=== PATIENT | female | born 1950 | race Caucasian/White ===

== ENCOUNTER → 2016-12-15 | Outpatient (CLI) | payer OTHER ==
[2016-12-15 10:58] LABS: Basophils # (A) 0.1 k/uL (0-0.2); Basophils % (A) 1 %; CH 28.3; CHCM 32.6; Eosinophils # (A) 0.4 k/uL (0-0.7); Eosinophils % (A) 4 %; HCT 43.4 % (34.0-46.0); HGB 14.4 gm/dL (11.4-16.0); Luc # (Auto) 0.16; Luc % (Auto) 2; Lymphocytes % (A) 24 %; MCH 28.9 pg (25.0-35.0); MCHC 33.1 g/dL (31.0-37.0); MCV 87.2 fL (80.0-100.0); Mean Platelet Volume 6.5; Monocytes # (A) 0.4 k/uL (0-1.0); Monocytes % (A) 5 %; Neutrophils # (A) 5.4 k/uL (1.3-7.7); Neutrophils % (A) 65 %; RBC 4.98 m/uL (3.80-5.40); WBC 8.4 k/uL (3.8-10.6); WBC (Perox) 8.99
[2016-12-15 11:44] LABS: Hemoglobin A1C 5.5 % (4.2-6.1)
[2016-12-15 13:57] LABS: ALT 31 U/L (9-52); AST 26 U/L (14-36); Alkaline Phosphatase 142 U/L (38-126); Anion Gap 10 mmol/L; Blood Urea Nitrogen 23 mg/dL (7-17); Calcium 9.9 mg/dL (8.4-10.2); Carbon Dioxide 26 mmol/L (22-30); Chloride 106 mmol/L (98-107); Cholesterol 226 mg/dL (<200); Creatine Kinase 51 U/L (30-135); Glucose 95 mg/dL (74-99); HDL Cholesterol 66 mg/dL (40-60); Non-African American GFR(MDRD) >60 (>60 ml/min/1.73 sqM); Potassium 4.7 mmol/L (3.5-5.1); Sodium 142 mmol/L (137-145); Total Bilirubin 0.8 mg/dL (0.2-1.3); Total Protein 7.3 g/dL (6.3-8.2); Uric Acid 3.3 mg/dL (3.7-7.4)
[2016-12-15 14:58] LABS: Hepatitis C Virus IgG Ab Reactive (Negative); Hepatitis C Virus IgG Index 4.95
[2016-12-15 16:10] LABS: Vitamin B12 863 pg/mL (239-931)
[2016-12-15 16:50] LABS: ANA w/Reflex to Titer NEGATIVE (NEGATIVE); Cyclic Citrull Pep IgG Unit <0.5 U/mL; Cyclic Citrullinated Pep IgG NEGATIVE (NEGATIVE)
[2016-12-16 10:47] LABS: Lyme IgG/IgM 0.2 Index; Lyme IgG/IgM Interp NEGATIVE (NEGATIVE)
[2016-12-16 16:15] LABS: Hepatits C Virus RNA, Quant <12 IU/mL (<12); LOG HCV IU/mL <1.08 (<1.08)
== END | disposition home or self-care (01) ==
LOC: LABWHC1 10:33
PROVIDERS: ATTEND Family Medicine
DX: R53.82 Chronic fatigue, unspecified (principal); M85.9 Disorder of bone density and structure, unspecified; M60.19 Interstitial myositis, multiple sites; E55.9 Vitamin D deficiency, unspecified; M13.0 Polyarthritis, unspecified; E53.8 Deficiency of other specified B group vitamins; Z13.220 Encounter for screening for lipoid disorders; Z20.5 Contact with and (suspected) exposure to viral hepatitis
CPT/HCPCS: 36415; 80053; 80061; 82306; 82550; 82607; 83036; 83735; 84439; 84443; 84550; 85025; 86038; 86140; 86200; 86618; 86803; 87522

== ENCOUNTER → 2017-01-11 | Outpatient (CLI) | payer OTHER | END | disposition home or self-care (01) | LOC: LABWHC1 11:37 | PROVIDERS: ATTEND Physician Assistant | DX: B19.20 Unspecified viral hepatitis C without hepatic coma (principal); Z86.19 Personal history of other infectious and parasitic diseases | CPT/HCPCS: 36415; 80074 ==

== ENCOUNTER → 2019-01-17 | Outpatient (CLI) | payer MEDICARE, OTHER ==
--- NOTE | 2019-01-22 09:12 | MM ---
Reason for exam: screening (asymptomatic). Last mammogram was performed 2 years ago. History: Patient is postmenopausal. Family history of breast cancer in mother at age 88. Benign US biopsy breast VAD RT of the right breast, September 22, 2015. Physical Findings: A clinical breast exam by your physician is recommended on an annual basis and results should be correlated with mammographic findings. MG 3D Screening Mammo W/Cad Bilateral CC and MLO view(s) were taken. Prior study comparison: January 09, 2017, bilateral MG 3d diag mammo w/cad [facility]. September 22, 2015, right breast MG diagnostic mammo RT wo CAD. The breast tissue is heterogeneously dense. This may lower the sensitivity of mammography. Previous mammotome biopsy in the right breast. No significant changes when compared with prior studies. ASSESSMENT: Benign, BI-RAD 2 RECOMMENDATION: Routine screening mammogram of both breasts in 1 year.
== END | disposition home or self-care (01) ==
LOC: RADMAMWWP 16:27
PROVIDERS: ATTEND Family Medicine
DX: Z12.31 Encounter for screening mammogram for malignant neoplasm of breast (principal)
CPT/HCPCS: 77063; 77067

== ENCOUNTER → 2022-09-06 | Outpatient (CLI) | payer MEDICARE, OTHER ==
--- NOTE | 2022-09-06 10:13 | MM ---
Reason for Exam: Clinical finding. Last mammogram was performed 3 year(s) and 7 month(s) ago. Patient History: Menarche at age 14. First Full-Term at age 26. Postmenopausal. 09/22/2015, Benign Core Biopsy on the right side. Mother had breast cancer, age 88. Risk Values: Ashwini 5 year model risk: 3.9%. NCI Lifetime model risk: 11.1%. Prior Study Comparison: 01/07/2014 Bilateral Screening Mammogram, [facility]. 08/21/2015 Bilateral Screening Mammogram, [facility]. 08/28/2015 Right Diagnostic Ultrasound, [facility]. 09/22/2015 Right Diagnostic Mammogram, [facility]. 01/09/2017 Bilateral Diagnostic Mammogram, [facility]. 01/09/2017 Right Diagnostic Ultrasound, [facility]. 01/17/2019 Bilateral Screening Mammogram, [facility]. Tissue Density: The breast tissue is heterogeneously dense. This may lower the sensitivity of mammography. Findings: Analyzed By CAD. On the right, 12:00 focal asymmetry is not persistent on additional views. On the left, an area of asymmetric density far posterior inferiorly on the MLO view also does not persist on additional views. Chronic nodularity laterally on the right along with microclip upper outer quadrant on the right side from prior biopsy. No significant change from prior exams. Overall Assessment: Incomplete: need additional imaging evaluation, BI-RAD 0 Management: Diagnostic Breast Ultrasound of the left breast. For the patient's palpable as ordered. Electronically signed and approved by: Stef Baker M.D. Radiologist
--- NOTE | 2022-09-06 10:41 | USB ---
Reason for Exam: Clinical finding. Patient History: Menarche at age 14. First Full-Term at age 26. Postmenopausal. 09/22/2015, Benign Core Biopsy on the right side. Mother had breast cancer, age 88. Risk Values: Ashwini 5 year model risk: 3.9%. NCI Lifetime model risk: 11.1%. Technique: Method: Targeted. Prior Study Comparison: 09/22/2015 Right Diagnostic Mammogram, [facility]. 01/09/2017 Bilateral Diagnostic Mammogram, [facility]. 01/17/2019 Bilateral Screening Mammogram, [facility]. Findings: The upper outer quadrant of the left breast, the axilla of the left breast and the retroareolar of the left breast were scanned. Targeted ultrasound left breast upper outer quadrant 12:00 to 3:00 including the subareolar region and axilla. No solid or cystic lesion. No axillary lymphadenopathy. Overall Assessment: Benign, BI-RAD 2 Management: Screening Mammogram of both breasts in 1 year. Further clinical management of any suspicious palpable abnormalities. Patient should continue monthly self breast exams. Note patient's elevated five-year Ashwini score. A Ashwini score greater than 3% is considered moderate risk. If this is the case, consider specialist referral to assess eligibility for a risk reducing agent. Results were given to the patient verbally at the time of exam. Electronically signed and approved by: Stef Baker M.D. Radiologist
== END | disposition home or self-care (01) ==
LOC: RADMAMWWP 09:30
PROVIDERS: ATTEND Family Medicine
DX: N63.21 Unspecified lump in the left breast, upper outer quadrant (principal); N63.11 Unspecified lump in the right breast, upper outer quadrant; Z78.0 Asymptomatic menopausal state; Z80.3 Family history of malignant neoplasm of breast
CPT/HCPCS: 77066; 76642; G0279; 77062

== ENCOUNTER → 2022-09-27 | Outpatient (CLI) | payer MEDICARE, OTHER ==
--- NOTE | 2022-09-27 12:45 | CA ---
Stress Echo Report Ashwini Fernandez Age: 72 Gender: F : 1950 Exam Date: 09/27/2022 09:23 Exam Location: [place] [facility] Ht (in): 63 Wt (lb): 150 Ordering Physician: Hannah Fabian MD Referring Physician: MORALES, Ordering Box Operator: CHRISTINA Technologist Procedure CPT: Indication: R07.9 ICD-9 Codes: Rhythm: Patient History: Fatigue Cardiac Medications: Medications in past 24 hours: Contrast: Stress Results Protocol: Sean Total dose(mL): Exercise Duration (min:sec): Max ST Depression (mm): Angina Score: Roman Score: METS: 9.3 Resting HR: 71 Resting BP: 128 / 67 Peak HR: 144 Peak BP: 200 / 75 Max Predicted HR: 150 96 % Max Predicted HR Target HR: 128 Double Product: [id number] Stress Summary: The patient's target heart rate was achieved BP Response: Normal Reason for Termination: MAX EXERTION/TARGET HR Cardiac Symptoms: CHEST PRESSURE ECG Analysis Resting ECG: Normal sinus rhythm, normal ECG Stress ECG: No abnormal ST/T wave changes with exercise Arrhythmia: Non-sustained ventricular tachycardia (3-5 beats) Echo Analysis Resting Echo: Normal resting echocardiogram. Peak Echo Analysis: Normal wall thickening and motion MEASUREMENTS (Male/Female) Normal Values CONCLUSIONS 1. Good exercise tolerance with normal electrocardiographic response to exercise an occasional PVCs with nonsustained VT 2.Normal treadmill stress echocardiogram. Dr. Ruperto Godoy MD (Electronically Signed) Final Date: 27 September 2022 12:44
== END | disposition home or self-care (01) ==
LOC: RADNMMAIN 09:06
PROVIDERS: ATTEND Family Medicine
DX: R07.9 Chest pain, unspecified (principal)
CPT/HCPCS: 93351

== ENCOUNTER → 2023-07-26 | Outpatient (CLI) | payer MEDICARE, OTHER ==
--- NOTE | 2023-07-26 12:11 | FL ---
ESOPHOGRAM. HISTORY: Dysphagia Esophagram was performed per the air contrast technique. The patient swallowed barium and effervesce nt crystals without difficulty or delay. Esophageal peristalsis and motility appear to be within normal limits. There is no evidence for filling defect, mass or diverticulum. There is hypertrophy of the cricophar yngeus musculature at the C4 level inferior endplate. Small reducible sliding type hiatal hernia. Subsequently single contrast cervical esophagram was performed which fails demonstrate evidence for a spiration penetration or mass. IMPRESSION: 1. Small reducible sliding type hiatal hernia. 2. There is hypertrophy of the cricopharyngeus musculature at the C4 level inferior endplate.
== END | disposition home or self-care (01) ==
LOC: RADUSWWP 09:58
PROVIDERS: ATTEND Family Medicine
DX: R13.14 Dysphagia, pharyngoesophageal phase (principal); J39.2 Other diseases of pharynx; K44.9 Diaphragmatic hernia without obstruction or gangrene
CPT/HCPCS: 74220

== ENCOUNTER → 2023-09-14 | Outpatient (CLI) | payer MEDICARE, OTHER ==
--- NOTE | 2023-09-14 13:08 | BD ---
EXAMINATION TYPE: Axial Bone Density DATE OF EXAM: 09/14/2023 CLINICAL HISTORY: 73 years old Female. ICD-10 CODE: M85.9 DISORDER OF BONE DENSITY AN Height: 62.5 Weight: 147.5 FRAX RISK QUESTIONS: Alcohol (3 or more units per day): no Family History (Parent hip fracture): no Glucocorticoids (More than 3mos): no (Ex: prednisone, prednisolone, methylprednisolone, dexamethasone, and hydrocortisone). History of Fracture in Adulthood: no Secondary Osteoporosis: 1. Type 1 Diabetes: no 2. Hyperthyroidism: no 3. Menopause before 45: no 4. Malnutrition: no 5. Chronic liver disease: no Rheumatoid Arthritis: no Current Tobacco Use: no RISK FACTORS HISTORY OF: Hip Fracture (Right/Left): no Spine Fracture: no History of Wrist Fracture: no Surgery to Spine/Hip(right/left)/Wrist (right/left): no MEDICATIONS: Thyroid Medications: no Osteoporosis Medications: no EXAM MEASUREMENTS: Bone mineral densitometry was performed using the [employer] System. Bone mineral density as measured about the Lumbar spine is: ----- L1-L4(G/cm2): 1.100 T Score Values are as follows: ----- L1: -1.4 ----- L2: -0.9 ----- L3: -0.8 ----- L4: 0.1 ----- L1-L4: -0.7 Z Score Values are as follows: ----- L1: 0.2 ----- L2: 0.7 ----- L3: 0.8 ----- L4: 1.7 ----- L1-L4: 1.0 Bone mineral density has: decreased -6.4 % since study of: 01/09/2017 Bone mineral density about the R hip (g/cm2): 0.947 Bone mineral density about the L hip (g/cm2): 0.966 T Score values are as follows: -----R Neck: -1.5 -----L Neck: -1.7 -----R Total: -0.5 -----L Total: -0.3 Z Score values are as follows: -----R Neck: 0.1 -----L Neck: 0.0 -----R Total: 1.0 -----L Total: 1.1 Bone mineral density has: decreased -4.4 % since study of: 01/09/2017 FRAX%s: The graph provided illustrates a 10.9% chance for a major osteoporotic fx and a 1.9% chance f or the hips probability for fx in 10 years time. IMPRESSION: Osteopenia (T Score between -2.5 and -1). There is slightly increased risk of fracture and the patient may be considered for treatment. Re-Screen 2-5 years. NOTE: T-SCORE=SD OF THE YOUNG ADULT MEAN.
--- NOTE | 2023-09-14 20:27 | MM ---
Reason for Exam: Screening (asymptomatic). Last screening mammogram was performed 12 month(s) ago. Patient History: Menarche at age 14. First Full-Term at age 26. Postmenopausal. 09/22/2015, Benign Core Biopsy on the right side. Mother had breast cancer, age 88. Risk Values: Ashwini 5 year model risk: 3.9%. NCI Lifetime model risk: 10.6%. Prior Study Comparison: 01/09/2017 Bilateral Diagnostic Mammogram, [facility]. 01/17/2019 Bilateral Screening Mammogram, [facility]. 09/06/2022 Bilateral MG 3D diag mammo w/cad [facility], [facility]. Tissue Density: The breasts are heterogeneously dense, which may obscure small masses. Findings: Analyzed By CAD. Microclip right posterior upper-outer quadrant from prior biopsy. On the left, there is a new 7 mm mass at the 8:00 position posterior depth which is suspicious and further evaluation is recommended. Overall Assessment: Incomplete: need additional imaging evaluation, BI-RAD 0 Management: Special View Mammogram of the left breast. Diagnostic Breast Ultrasound of the left breast. Additional views followed by whole left breast ultrasound given the suspicious mammographic finding. [facility] will attempt to contact patient to return for supplemental views and ultrasound if indicated. Electronically signed and approved by: Stef Baker M.D. Radiologist
== END | disposition home or self-care (01) ==
LOC: RADMAMWWP 09:38
PROVIDERS: ATTEND Family Medicine
DX: Z12.31 Encounter for screening mammogram for malignant neoplasm of breast (principal); M85.89 Other specified disorders of bone density and structure, multiple sites; Z78.0 Asymptomatic menopausal state; Z80.3 Family history of malignant neoplasm of breast
CPT/HCPCS: 77063; 77067; 77080

== ENCOUNTER → 2023-09-19 | Outpatient (CLI) | payer MEDICARE, OTHER ==
--- NOTE | 2023-09-19 10:46 | MM ---
Reason for Exam: Additional evaluation requested from abnormal screening. Last screening mammogram was performed less than 1 month ago. Patient History: Menarche at age 14. First Full-Term at age 26. Postmenopausal. 09/22/2015, Benign Core Biopsy on the right side. Mother had breast cancer, age 88. Risk Values: Ashwini 5 year model risk: 3.9%. NCI Lifetime model risk: 10.6%. Prior Study Comparison: 01/17/2019 Bilateral Screening Mammogram, [facility]. 09/06/2022 Bilateral MG 3D diag mammo w/cad [facility], [facility]. 09/14/2023 Bilateral MG 3D screening mammo w/cad, [facility]. Tissue Density: Left: The breasts are heterogeneously dense, which may obscure small masses. Findings: Analyzed By CAD. Persisting 7 mm density 8-9 o'clock posterior left breast for which further ultrasound evaluation is recommended. Overall Assessment: Incomplete: need additional imaging evaluation, BI-RAD 0 Management: Diagnostic Breast Ultrasound of the left breast. Electronically signed and approved by: Stef Baker M.D. Radiologist
--- NOTE | 2023-09-19 14:22 | USB ---
Reason for Exam: Additional evaluation requested from prior study. Patient History: Menarche at age 14. First Full-Term at age 26. Postmenopausal. 09/22/2015, Benign Core Biopsy on the right side. Mother had breast cancer, age 88. Risk Values: Ashwini 5 year model risk: 3.9%. NCI Lifetime model risk: 10.6%. Technique: Method: Whole Breast Handheld. Prior Study Comparison: 01/17/2019 Bilateral Screening Mammogram, [facility]. 09/06/2022 Bilateral MG 3D diag mammo w/cad [facility], [facility]. 09/14/2023 Bilateral MG 3D screening mammo w/cad, [facility]. Findings: The whole breast of the left breast, the axilla of the left breast and the retroareolar of the left breast were scanned. A complete US of all four quadrants of the breast, axilla, and retro-areolar region were reviewed. Irregular hypoechoic mass with echogenic halo at the 9:00 position, 8 cm from the nipple, mammographic correlate. No other solid or cystic lesion or axillary lymphadenopathy. Overall Assessment: Highly suggestive of malignancy, BI-RAD 5 Management: Ultrasound Core Biopsy of the left breast. Results were given to the patient verbally at the time of exam. Electronically signed and approved by: Stef Baker M.D. Radiologist
== END | disposition home or self-care (01) ==
LOC: RADMAMWWP 10:17
PROVIDERS: ATTEND Family Medicine
DX: N63.25 Unspecified lump in the left breast, overlapping quadrants (principal); R92.332 Mammographic heterogeneous density, left breast; Z80.3 Family history of malignant neoplasm of breast; Z78.0 Asymptomatic menopausal state
CPT/HCPCS: 77065; 76641; G0279; 77061

== ENCOUNTER → 2023-09-25 | Day surgery (SDC) | payer MEDICARE, OTHER ==
--- NOTE | 2023-10-04 10:50 | MM ---
Reason for Exam: Post Procedure Mammogram. Last screening mammogram was performed less than 1 month ago. Patient History: Menarche at age 14. First Full-Term at age 26. Postmenopausal. 09/22/2015, Benign Core Biopsy on the right side. Mother had breast cancer, age 88. Risk Values: Ashwini 5 year model risk: 3.9%. NCI Lifetime model risk: 10.6%. Prior Study Comparison: 09/06/2022 Bilateral MG 3D diag mammo w/cad [facility], [facility]. 09/14/2023 Bilateral MG 3D screening mammo w/cad, [facility]. 09/19/2023 Left MG 3D work up w/cad LT, [facility]. 09/19/2023 Left US breast LT, [facility]. Tissue Density: Left: The breasts are heterogeneously dense, which may obscure small masses. Pathology Description: Location: 9 o'clock, lower inner quadrant. Needle Type: Ensyn Cores: 4 Gauge: 12 The procedure of ultrasound guided core biopsy was explained to the patient. Benefits, alternatives, and risks were discussed. An informed consent was then obtained. The patient was placed in supine positioning for imaging and for the procedure. The overlying skin was prepped and draped in usual sterile fashion. Lidocaine buffered with bicarbonate was used as anesthetic into the skin and subcutaneous tissue up to area of concern in the left breast. A maximiliano was made with surgical scalpel. Under ultrasound guidance, a 12-gauge vacuum assisted biopsy gun device was used to obtain 4 core samples. Following this, a biopsy clip was left in lesion. The patient tolerated the procedure well without any immediate complication. The patient was kept in the radiology department for short stay after the procedure and then discharged home in stable condition. Postprocedure mammogram: The patient was transferred to mammography for physician ordered post procedure mammogram for clip placement verification. Impression: Successful, uncomplicated ultrasound guided core biopsy of area of concern in the left 9:00 breast, full pathology results to follow. Pathology Results: Result: Malignant, Invasive ductal carcinoma. Pathology and radiology were reviewed. Findings are concordant. LEFT BREAST, 9:00 POSITION 8 CM FROM NIPPLE, ULTRASOUND GUIDED CORE BIOPSY: Invasive ductal carcinoma, Grade 2 (see Surgical Pathology Cancer Case Summary and comment). Overall Assessment: Malignant Assessment: MG diagnostic mammo LT wo CAD. - Left: Known biopsy proven malignancy, BI-RAD 6. Management: Surgical Consultation of the left breast. Electronically signed and approved by: Gulshan Calderon M.D. Radiologis
== END ==
LOC: RADUSWWP 12:58
PROVIDERS: ATTEND Surgery
DX: C50.812 Malignant neoplasm of overlapping sites of left female breast (principal); R92.8 Other abnormal and inconclusive findings on diagnostic imaging of breast
CPT/HCPCS: 88305; 88342; 88341; 77065; 19083; A4648

== ENCOUNTER → 2023-10-12 | Outpatient (CLI) | payer MEDICARE, OTHER ==
[2023-10-12 09:54] VITALS: BP 155/81; PULSE 82; RESP 16; TEMP 98.6
--- NOTE | 2023-10-12 10:17 | P.BCPN ---
Subjective Progress Note Date: 10/12/23 Principal diagnosis: right breast invasive ductal cancer Ashwini is a 73 year old female status post left breast biopsy of a lesion in the lower medial aspect on 09-25-23. This was in invasive ductal cancer, 1 cm in size, G2, ER+SC+Her2-. This was found on a routine mammogram. The patient did not feel any lumps masses or nodules of concern in either breast. The right breast core biopsy in the past which was benign. Has never had any open surgery on her breast. She has not had any recent infection or trauma to the breast. She had had a prior mammogram within the last 2 years. Patient's case was presented at tumor board and 10-10-2023. The recommendation is for needle localization lumpectomy. She will then be seen by radiation oncology and may or may not be recommended for radiation. Additionally she will be recommended for hormone therapy and an Oncotype will be done on the specimen. chocolate: daily nicotine: stopped 40 years, used to smoke 1PPD for about 15 years caffeine: pop 1 can/day Family History: mother: breast cancer at 88 Hormonal History: menarche: 15 A1, age at first : 26, breast fed: no menopause: 57 had an ablation Surgical History: tonsil gallbladder uterine ablation hemroidectomy times 2 Medical HIstory: anxiety reflux hiatal hernia Social History: nicotine: as above alcohol: none drugs: none ROS: No fever or night sweats HEENT: Glasses Cardiac Negative Lungs: negative GI: IBS Musculoskeletal: Negative physiactric: Anxiety Bleeding abnormalities Negative Objective - Vital Signs Vital Signs: Vital Signs Temp 98.6 F 10/12/23 09:51 Pulse 82 10/12/23 09:51 Resp 16 10/12/23 09:51 BP 155/81 10/12/23 09:51 Pulse Ox 99 10/12/23 09:51 FiO2 Intake & Output 10/11/23 10/12/23 10/12/23 18:59 06:59 18:59 Weight 66.678 kg - Constitutional General appearance: Present: cooperative - EENT Eyes: Present: EOMI ENT: Present: hearing grossly normal - Neck Neck: Present: normal ROM - Respiratory Respiratory: bilateral: CTA - Cardiovascular Heart sounds: normal: S1, S2 - Gastrointestinal General gastrointestinal: Present: soft - Integumentary Integumentary: Present: normal turgor - Musculoskeletal Musculoskeletal: Present: gait normal - Psychiatric Psychiatric: Present: A&O x's 3, appropriate affect, intact judgment & insight - Additional findings Additional findings: Breast Exam: BRA: 36B Inspection: Bilateral grade 2 ptosis Palpation: Right breast: Multi positional exam fibrocystic changes no dominant masses or nodules of concern Right axilla: No adenopathy of concern Left breast: Multi positional exam ecchymosis in the lower inner quadrant area slight fullness near area where biopsy was performed which may represent hematoma versus the nodule Left axilla: No adenopathy of concern Assessment and Plan Plan: Impression: Stage I invasive ductal carcinoma left breast Patient patient's case presented at tumor board on 10-10-2023 Plan: Needle localization lumpectomy left breast possible oncoplastic tissue transfer, we will consider sentinel node biopsy Oncotype to be obtained on specimen Appointment radiation oncology Appointment medical oncology
== END ==
LOC: WWCWWP 09:02
PROVIDERS: ATTEND Surgery
DX: C50.912 Malignant neoplasm of unspecified site of left female breast (principal); Z17.0 Estrogen receptor positive status [ER+]; Z87.891 Personal history of nicotine dependence; Z80.3 Family history of malignant neoplasm of breast

== ENCOUNTER 2023-10-17 07:05 | Day surgery (SDC) | payer MEDICARE, OTHER ==
[2023-10-17] MEDS ORDERED: MIDAZOLAM 2 MG/2 ML VIAL IV PRN (07:27)
[2023-10-17] MEDS ORDERED: HYDROmorphone 0.5 MG/0.5 ML SYRINGE IVP PRN (07:27)
[2023-10-17] MEDS: IV FLUID CONTINUATION 1,000 ML IV ONE (08:00)
[2023-10-17] MEDS: LACTATED RINGERS 1,000 ML IV SCH (08:00)
[2023-10-17] MEDS: ACETAMINOPHEN TAB 500 MG TAB PO PRN (08:05)
[2023-10-17] MEDS: ALPRAZolam 0.25 MG TAB PO STA (08:06)
[2023-10-17] MEDS: ONDANSETRON 4 MG/2 ML VIAL IVP ONE (08:07)
[2023-10-17] MEDS: DEXAMETHASONE SOD PHOSPHATE 4 MG/ML 1 ML VIAL IV ONE (08:07)
--- NOTE | 2023-10-17 09:49 | NM ---
EXAMINATION TYPE: NM sentinel node injection DATE OF EXAM: 10/17/2023 COMPARISON: Needle localization same day CLINICAL INDICATION: Female, 73 years old with history of Breast Cancer; TECHNIQUE AND FINDINGS: The procedure of sentinel lymph node injection was explained to the patient. The benefits, alternatives, and risks were discussed. An informed consent was then obtained. Overlying skin is cleaned with sterile alcohol. Following this, 497 uCi Tc99m Tilmanocept was inject ed in the upper outer aspect of the left nipple intradermally. The patient tolerated the procedure well without any immediate complication. The patient was kept in the radiology department for short stay after the procedure and then taken to surgery for surgical p rocedure what is presumed intraoperative gamma probe will be used for sentinel lymph node detection. IMPRESSION: Left breast radiotracer injection for sentinel node localization as above.
[2023-10-17] MEDS: HEPARIN SODIUM,PORCINE 5,000 UNIT/ML 1 ML VIAL SQ PRN (10:04)
--- NOTE | 2023-10-17 10:10 | P.NAPBC ---
NAPBC Queries - NAPBC Queries Was patient's case review presented at [facility] tumor board? If no, comment.: Yes Was patient's pathology reviewed at [facility]? If no, comment.: Yes Was breast conservation surgery offered? If no, comment.: Yes Was sentinel node biopsy offered? If no, comment.: Yes Was diagnosis confirmed by percutaneous core biopsy? If no, comment.: Yes Is patient mastectomy patient?: No Was a preop referral to reconstructive surgeon offered?: No Clinical Stage: left breast invasive ductal cancer, [id number]+Pr+Her2-G2 stage I
[2023-10-17] MEDS ORDERED: ROCURONIUM 10 MG/ML (5 ML VIAL) IV ONE (10:37)
[2023-10-17] MEDS ORDERED: LIDOCAINE 1% INJ 10MG/ML (20 ML MDV) ONE (10:37)
[2023-10-17] MEDS ORDERED: PROPOFOL 10 MG/ML 20 ML VIAL IV ONE (10:37)
[2023-10-17] MEDS ORDERED: NEOSTIGMINE 1 MG/ML 10 ML VIAL ONE (10:37)
[2023-10-17] MEDS ORDERED: SUCCINYLCHOLINE CHLORIDE 200 MG/10 ML VIAL IV ONE (10:37)
[2023-10-17] MEDS ORDERED: fentaNYL (PF) 50 MCG/ML 2 ML AMP ONE (10:37)
[2023-10-17] MEDS ORDERED: MIDAZOLAM 2 MG/2 ML VIAL ONE (10:37)
[2023-10-17] MEDS ORDERED: GLYCOPYRROLATE 0.2 MG/ML 2 ML VIAL ONE (10:37)
[2023-10-17] MEDS ORDERED: PHENYLEPHRINE-0.9% NACL SYG 1,000 MCG/10 ML SYRINGE ONE (10:37)
[2023-10-17] MEDS: LIDOCAINE 1% INJ 10MG/ML (20 ML MDV) SQ ONE ×2 (11:51→12:01)
--- NOTE | 2023-10-17 12:08 | P.BCAON ---
Date of Procedure: 10/17/23 Preoperative Diagnosis: Invasive ductal carcinoma left breast Postoperative Diagnosis: Same Procedure(s) Performed: Left breast needle localization lumpectomy, oncoplastic tissue transfer 26 cm, sentinel node biopsy Anesthesia: LUIS M Surgeon: Zuleika Copeland Estimated Blood Loss (ml): 5 IV fluids (ml): 600 Pathology: other (Left breast invasive ductal carcinoma, lumpectomy, sentinel node biopsy) Condition: stable Disposition: same day Indications for Procedure: Biopsy-proven left breast invasive ductal carcinoma Operative Findings: Fibrofatty breast tissue Description of Procedure: The patient was seen initially in the radiology department where needle localization of the lesion in the left breast was performed as well as injection of radiotracer into the periareolar region. The patient was then brought to the operative suite. Following induction of anesthesia the neoprobe was used to interrogate the axilla. Radioactivity was identified in the axilla. The left breast and axilla were then prepped and draped in a sterile fashion. Using the neoprobe for direction an incision was made in the axilla. This was followed down to the deep axillary tissue where the area of greatest ra dioactivity was identified. This was grasped using an Allis clamp. The tissue was excised. A lymph node was identified and the 10-second count was 36,714. The wound was well irrigated. The background 10-second count was 85. No specific additional lymph nodes of concern were identified. After we are sure that hemostasis was attained the deep tissues were closed using a 3-0 Vicryl suture. This was followed by closure of the skin with a 4-0 Monocryl. The area of the breast was then approached. An incision was made and carried down to the hook of the needle. Surrounding tissue was widely excised. The lesion was palpable and felt to be in the center of the tissue. The specimen was painted for orientation. Radiograph revealed the lesion and the clip was present in the specimen. After we were assured that hemostasis was attained the wound was well irrigated. A superior pillar 4 x 2 cm was formed. An inferior pillar 5 x 2 cm was formed. The defect was 4 x 2 cm. Titanium clips were placed in the cavity. Posteriorly dissection was onto the pectoralis muscle. The superior and inferior pillars were brought together. Total oncoplastic tissue transfer was 26 cm. The deep tissues were closed using 3-0 Vicryl suture. The skin was closed using 4-0 Monocryl. The patient tolerated the procedure in stable condition. All instrument and sponge counts were correct at the end of the case. - Sentinal Node Biopsy Operation performed with curative intent: Yes Tracer(s) used in upfront surgery (non-neoadjuvant): radioactive tracer Tracer(s) used in the neoadjuvant setting: N/A All nodes present at end of dye-filled channel removed: N/A All significantly radioactive nodes were removed: Yes All palpably suspicious nodes were removed: Yes Clipped positive nodes identified and removed: N/A
[2023-10-17 12:27] VITALS: TEMP 97.9
[2023-10-17 13:19] VITALS: RESP 18
[2023-10-17 14:12] VITALS: BP 134/63; PULSE 82
== END 2023-10-17 14:18 | disposition home or self-care (01) ==
LOC: OR 07:05
PROVIDERS: ATTEND Surgery
DX: D05.12 Intraductal carcinoma in situ of left breast (principal); Z85.3 Personal history of malignant neoplasm of breast
CPT/HCPCS: 88342; 88307; 88341; 38792; 19301; A9520; J2250; J0330; J1644; J1100; J2710; J0690; J2405; J2001; J3010; J2704; J2371; J1596

== ENCOUNTER → 2023-10-27 | Outpatient (CLI) | payer MEDICARE, OTHER ==
--- NOTE | 2023-10-27 09:47 | P.BCPO ---
Progress Note - Text Progress Note Date: 10/27/23 Ashwini is status post left breast lumpectomy and SNB on 10-17-23. Her margins were (-) for a 6mm IDC, and high grade DCIS. THe DCIS was < 1mm from the medical margin. Two sentinal nodes (-). Patient seen by DR. Nolan on 10-25-23. She is having an oncotype done, will have appointment with radiation oncology, and hormones therapy at some point in her treatment. She is going to have genetic testing done. The patient has done well postoperatively. Examination: Lungs: Clear Heart: Regular rate and rhythm Incision: Clean and dry left breast and left axilla Patient doing well status post left breast lumpectomy and sentinel node biopsy Plan: Follow with medical oncology Follow radiation oncology Follow-up here in 4 months Patient to follow-up sooner any questions or concerns CC: Dr. Fabian Post Op Education - Post Op Education Post Op Education Provided Date: 10/27/23 - Functional Assessment Performed?: Yes (arm abduction passed) Referal Provided?: No
[2023-10-27 09:51] VITALS: BP 125/76; PULSE 86; RESP 17; TEMP 98.4
== END ==
LOC: WWCWWP 08:55
PROVIDERS: ATTEND Surgery
DX: Z48.817 Encounter for surgical aftercare following surgery on the skin and subcutaneous tissue (principal); Z85.3 Personal history of malignant neoplasm of breast; Z87.891 Personal history of nicotine dependence

== ENCOUNTER → 2024-03-01 | Outpatient (CLI) | payer MEDICARE, OTHER | LOC: WWCWWP 09:12 | PROVIDERS: ATTEND Surgery | DX: Z85.3 Personal history of malignant neoplasm of breast (principal); Z87.891 Personal history of nicotine dependence ==

== ENCOUNTER 2024-03-22 08:34 | Day surgery (SDC) | payer MEDICARE, OTHER ==
[2024-03-19 13:57] VITALS: BMI 26.5
[2024-03-22 09:12] VITALS: TEMP 97.1
[2024-03-22] MEDS: LACTATED RINGERS 1,000 ML IV SCH (09:18)
[2024-03-22] MEDS: IV FLUID CONTINUATION 1,000 ML IV ONE (09:19)
[2024-03-22] MEDS ORDERED: PROPOFOL 10 MG/ML 20 ML VIAL IV ONE (10:38)
[2024-03-22] MEDS ORDERED: LIDOCAINE 1% INJ 10MG/ML (20 ML MDV) ONE (10:38)
--- NOTE | 2024-03-22 10:49 | P.PCN ---
Date of Procedure: 03/22/24 Procedure(s) Performed: BRIEF HISTORY: Patient is a 73-year-old, pleasant, white female scheduled for an upper endoscopy as a part of evaluation of intermittent dysphagia and throat tightening for the last few months duration. She does have longstanding history of GERD and is on Protonix 40 mg daily. PROCEDURE PERFORMED: Esophagogastroduodenoscopy with biopsy and balloon dilation. PREOPERATIVE DIAGNOSIS: Intermittent dysphagia to solids/longstanding history of GERD. IV sedation per anesthesia. PROCEDURE: After informed consent was obtained, the patient was brought into the endoscopy unit. IV sedation was administered by Anesthesia under continuous monitoring. Initially the Olympus GIF-140 video endoscope was inserted into the mouth. Esophagus intubated without any difficulty. It was gradually advanced into the stomach and duodenum and carefully examined. The bulb and the second part of the duodenum appeared normal. The scope at this time was withdrawn to the stomach, adequately insufflated with air, and upon careful examination, mucosa of the antrum, body, cardia and the fundus appeared normal. Multiple small gastric polyps noted in the body and fundus of the stomach which were biopsied. The scope was then withdrawn into the esophagus. Hiatal hernia noted. The GE junction was located at 39 cm from the incisors. There was a distal esophageal Schatzki's ring identified and this was dilated using 18 to 20 mm TTS balloon for 60 seconds. Following the dilation there was some mucosal tear with oozing identified that spontaneously resolved. Rest of the esophagus appeared normal. There were no erosions or ulcerations seen and the patient tolerated the procedure well. IMPRESSION: 1. Distal esophageal Schatzki's ring status post balloon dilation using 18 to 20 mm TTS balloon. 2. Small hiatal hernia 3. Multiple gastric polyps status post biopsy. RECOMMENDATIONS: The findings of this examination were discussed with the patient as well as her family. She was advised to follow-up with the biopsy results. She will remain on clear liquids for 2 hours. Continue with Protonix 40 mg daily and follow antireflux measures. Follow-up in the office in 3 to 4 weeks..
[2024-03-22 11:21] VITALS: BP 112/63; PULSE 63; RESP 16
== END 2024-03-22 11:23 | disposition home or self-care (01) ==
LOC: ORWHC2ENDO 08:34
PROVIDERS: ATTEND Internal Medicine Gastroenterology
DX: K29.50 Unspecified chronic gastritis without bleeding (principal); K22.2 Esophageal obstruction; K21.9 Gastro-esophageal reflux disease without esophagitis; K44.9 Diaphragmatic hernia without obstruction or gangrene; K31.7 Polyp of stomach and duodenum; F41.9 Anxiety disorder, unspecified; F32.A Depression, unspecified; Z90.89 Acquired absence of other organs; Z98.890 Other specified postprocedural states; Z79.899 Other long term (current) drug therapy
CPT/HCPCS: 88305; 43239; 43249; J2003; J2704; C1726

== ENCOUNTER → 2024-07-05 | Outpatient (CLI) | payer MEDICARE, OTHER ==
--- NOTE | 2024-07-05 15:00 | P.PN ---
Subjective Progress Note Date: 07/05/24 Subjective Progress Note Date: 10/12/23 Principal diagnosis: right breast invasive ductal cancer September 2023; [id number]+ Her2-G2 Ashwini is a 73 year old female status post left breast biopsy of a lesion in the lower medial aspect on 09-25-23. This was in invasive ductal cancer, 1 cm in size, G2, ER+MI+Her2-. This was found on a routine mammogram. The patient did not feel any lumps masses or nodules of concern in either breast. The right breast core biopsy in the past which was benign. Has never had any open surgery on her breast. She has not had any recent infection or trauma to the breast. She had had a prior mammogram within the last 2 years. Patient's case was presented at tumor board and 10-10-2023. The recommendation is for needle localization lumpectomy. She will then be seen by radiation oncology and may or may not be recommended for radiation. Additionally she will be recommended for hormone therapy and an Oncotype will be done on the specimen. on 10-17-23 left breast lumpectomy and SNB, G2 6mm IDC, DCIS, (-) margins but DCIS < 1 mm from inferior margin, ER/Pr+Her2(-) genetic testing (-) oncotype 13 competed radiation therapy November 2023 patient on letrazole note medical oncology reviewed 06-11-24 Patient will have bilateral mammogram on July 15, 2024 She was complaining of pain in the left surgical site, and told ? seroma, she stopped drinking coke and it feels better She is not complaining of any other lumps masses or nodules of concern in either breast. She is tolerating the letrozole without difficulty. chocolate: daily nicotine: stopped 40 years, used to smoke 1PPD for about 15 years caffeine: pop 1 can/day Family History: mother: breast cancer at 88 Hormonal History: menarche: 15 A1, age at first : 26, breast fed: no menopause: 57 had an ablation Surgical History: tonsil gallbladder uterine ablation hemroidectomy times 2 Medical HIstory: anxiety reflux hiatal hernia Social History: nicotine: as above alcohol: none drugs: none ROS: No fever or night sweats HEENT: Glasses Cardiac Negative Lungs: negative GI: IBS Musculoskeletal: Negative physiactric: Anxiety Bleeding abnormalities Negative Objective - Constitutional General appearance: Present: cooperative - EENT Eyes: Present: EOMI ENT: Present: hearing grossly normal - Neck Neck: Present: normal ROM - Respiratory Respiratory: bilateral: CTA - Cardiovascular Rhythm: regular Heart sounds: normal: S1, S2 - Integumentary Integumentary: Present: normal turgor - Musculoskeletal Musculoskeletal: Present: gait normal - Psychiatric Psychiatric: Present: A&O x's 3, appropriate affect, intact judgment & insight - Additional findings Additional findings: Breast Exam: BRA: 36B Inspection: Bilateral grade 2 ptosis Palpation: Right breast: Multi positional exam fibrocystic changes no dominant masses or nodules of concern Right axilla: No adenopathy of concern Left breast: post surgical and post radiation changes mild fullness in the mid lower breast related to treatment, no dominant masses or nodules of concern Left axilla: No adenopathy of concern Assessment and Plan Assessment: Impression: Stage I invasive ductal carcinoma left breast Patient status post left breast lumpectomy and radiation therapy Patient presently on letrozole Plan: Seromas present at the lumpectomy site will get an ultrasound prior to her mammo gram Lateral mammogram July 15 follow-up after this Follow medical oncology Follow radiation oncology Additional CC's: Hannah Fabian
[2024-07-05 15:11] VITALS: BP 115/71; PULSE 95; RESP 16; TEMP 97.8
== END ==
LOC: WWCWWP 14:33
PROVIDERS: ATTEND Surgery
DX: C50.912 Malignant neoplasm of unspecified site of left female breast (principal); Z90.12 Acquired absence of left breast and nipple; Z92.3 Personal history of irradiation; Z80.3 Family history of malignant neoplasm of breast; Z87.891 Personal history of nicotine dependence; Z79.811 Long term (current) use of aromatase inhibitors; Z78.0 Asymptomatic menopausal state

== ENCOUNTER → 2024-07-09 | Outpatient (CLI) | payer MEDICARE, OTHER ==
--- NOTE | 2024-07-09 08:05 | USB ---
Reason for Exam: Clinical finding. Patient History: Menarche at age 14. First Full-Term at age 26. Postmenopausal. Breast cancer, left, age 73. Breast cancer, left, age 73. 10/17/2023, Lumpectomy on the Left side. 10/17/2023, Malignant MG pre op needle loc LT on the left side. 09/25/2023, Malignant US biopsy breast VAD LT on the left side. 09/22/2015, Benign Core Biopsy on the right side. Mother had breast cancer, age 88. Technique: Method: Targeted. Doppler: Color. Patient Position: Supine. Prior Study Comparison: 09/14/2023 Bilateral MG 3D screening mammo w/cad, [facility]. 09/19/2023 Left MG 3D work up w/cad LT, [facility]. 09/25/2023 Left MG diagnostic mammo LT wo CAD., [facility]. Findings: The area of palpable concern of the left breast, the axilla of the left breast and the retroareolar of the left breast were scanned. A targeted US of 9:00 position left breast and axilla, retro-areolar region were reviewed. No solid or cystic masses are identified.. Small amount of fluid is seen at the 9:00 position of the left breast. Most likely is postsurgical. MRI could be obtained if clinically warranted. In the retroareolar area position of the left breast there is a 7 x 3 and 7 x 4 hypoechoic nodule with shadowing which are suspicious findings. Core biopsy is recommended. Overall Assessment: Suspicious, BI-RAD 4 Management: Ultrasound Core Biopsy of the left breast. MRI could BE obtained if clinically warranted. See above. A clinical breast exam by your physician is recommended on an annual basis and results should be correlated with mammographic findings. This exam should not preclude additional follow-up of suspicious palpable abnormalities. Results were given to the patient verbally at the time of exam. [facility], , 07/09/2024 8:02 AM. Electronically signed and approved by: José Miguel Kelly M.D. Radiologis
== END | disposition home or self-care (01) ==
LOC: RADUSWWP 07:22
PROVIDERS: ATTEND Surgery
DX: Z85.3 Personal history of malignant neoplasm of breast (principal); Z78.0 Asymptomatic menopausal state; Z80.3 Family history of malignant neoplasm of breast

== ENCOUNTER → 2024-07-15 | Day surgery (SDC) | payer MEDICARE, OTHER ==
--- NOTE | 2024-07-16 10:00 | USB ---
Procedure Description: Left breast biopsy discontinued Findings: The patient was scheduled for biopsy of the left breast utilizing ultrasound guidance. Prescan does not reveal a persistent lesion to sample at this time. There is a mildly prominent duct without intraductal lesion. The patient is scheduled for mammography in September 2024 and follow up ultrasound at that time is advised. This was discussed at length with the patient. Areas of shadowing seen previously are felt to reflect a normal ligament and fibroglandular tissues. Impression: Probably benign BI-RADS 3. Management: Diagnostic Breast Ultrasound of the left breast in 3 months. Electronically signed and approved by: Gulshan Cadleron M.D. Radiologis
== END ==
LOC: RADUSWWP 12:16
PROVIDERS: ATTEND Surgery
DX: N63.20 Unspecified lump in the left breast, unspecified quadrant (principal); Z53.8 Procedure and treatment not carried out for other reasons

== ENCOUNTER → 2024-08-30 | Outpatient (CLI) | payer MEDICARE, OTHER ==
--- NOTE | 2024-09-02 11:38 | MM ---
Reason for Exam: Additional evaluation requested from prior study. Last screening mammogram was performed 12 month(s) ago. Patient History: Menarche at age 14. First Full-Term at age 26. Postmenopausal. Breast cancer, left, age 73. Breast cancer, left, age 73. 10/17/2023, Lumpectomy on the Left side. 10/17/2023, Malignant MG pre op needle loc LT on the left side. 09/25/2023, Malignant US biopsy breast VAD LT on the left side. 09/22/2015, Benign Core Biopsy on the right side. 07/15/2024, US discontinued breast bx LT on the left side. Mother had breast cancer, age 88. Tissue Density: The breasts are heterogeneously dense, which may obscure small masses. Findings: Analyzed By CAD. Interval posttreatment change of the left breast with surgical clips posteriorly into distortion towards the left axilla. Mammotome biopsy clip right breast posteriorly redemonstrated. No obvious new mass or worrisome cluster of microcalcification in either breast. Overall Assessment: Benign, BI-RAD 2 Management: Diagnostic Mammogram of both breasts in 1 year. Diagnostic Breast Ultrasound of the left breast in 6 months. Precautionary short-term diagnostic left breast ultrasound follow-up in 6 months time due to prior abnormal ultrasound. Results were given to the patient verbally at the time of exam. Patient should continue monthly self-breast exams. A clinical breast exam by your physician is recommended on an annual basis. This exam should not preclude additional follow-up of suspicious palpable abnormalities. Note on Ashwini scores and lifetime risk: 1. A Ashwini score greater than 3% is considered moderate risk. If this is the case, consider specialist referral to assess eligibility for a risk reducing agent. 2. If overall lifetime risk for the development of breast cancer is 20% or higher, the patient may qualify for future screening with alternating mammogram and breast MRI. [facility], , 08/30/2024 2:42 PM. Electronically signed and approved by: Scott Etienne M.D.
== END | disposition home or self-care (01) ==
LOC: RADMAMWWP 13:58
PROVIDERS: ATTEND Surgery
DX: R92.333 Mammographic heterogeneous density, bilateral breasts (principal); Z85.3 Personal history of malignant neoplasm of breast; Z78.0 Asymptomatic menopausal state; Z80.3 Family history of malignant neoplasm of breast
CPT/HCPCS: 77066; G0279; 77062

== ENCOUNTER → 2024-08-30 | Outpatient (CLI) | payer MEDICARE, OTHER ==
[2024-08-30 13:36] VITALS: BP 112/66; PULSE 86; RESP 17; TEMP 97.9
--- NOTE | 2024-08-30 13:54 | P.PN ---
Subjective Progress Note Date: 08/30/24 08-30-24 Subjective Progress Note Date: Principal diagnosis: right breast invasive ductal cancer September 2023; [id number]+ Her2-G2 07-05-24 Ashwini is a 73 year old female status post left breast biopsy of a lesion in the lower medial aspect on 09-25-23. This was in invasive ductal cancer, 1 cm in size, G2, ER+OH+Her2-. This was found on a routine mammogram. The patient did not feel any lumps masses or nodules of concern in either breast. The right breast core biopsy in the past which was benign. Has never had any open surgery on her breast. She has not had any recent infection or trauma to the breast. She had had a prior mammogram within the last 2 years. Patient's case was presented at tumor board and 10-10-2023. The recommendation is for needle localization lumpectomy. She will then be seen by radiation oncology and may or may not be recommended for radiation. Additionally she will be recommended for hormone therapy and an Oncotype will be done on the specimen. on 10-17-23 left breast lumpectomy and SNB, G2 6mm IDC, DCIS, (-) margins but DCIS < 1 mm from inferior margin, ER/Pr+Her2(-) genetic testing (-) oncotype 13 competed radiation therapy November 2023 patient on letrazole note medical oncology reviewed 06-11-24 Patient will have bilateral mammogram on July 15, 2024; ultrasound of the left breast on 07-09-24 showed an area of shadowing behind the left nipple and core biopsy recommended, this was reviewed and personally discussed with Dr. Montenegro from radiology and it is felt that the tissue that is being observed is nonpathologic and can be followed. She was complaining of pain in the left surgical site, and told ? seroma, she stopped drinking coke and it feels better She is not complaining of any other lumps masses or nodules of concern in either breast. She is tolerating the letrozole without difficulty. chocolate: daily nicotine: stopped 40 years, used to smoke 1PPD for about 15 years caffeine: pop 1 can/day Family History: mother: breast cancer at 88 Hormonal History: menarche: 15 A1, age at first : 26, breast fed: no menopause: 57 had an ablation Surgical History: tonsil gallbladder uterine ablation hemroidectomy times 2 Medical HIstory: anxiety reflux hiatal hernia Social History: nicotine: as above alcohol: none drugs: none ROS: No fever or night sweats HEENT: Glasses Cardiac Negative Lungs: negative GI: IBS Musculoskeletal: Negative physiactric: Anxiety Bleeding abnormalities Negative Objective - Vital Signs Vital signs: Vital Signs Temp 97.9 F 08/30/24 13:31 Pulse 86 08/30/24 13:31 Resp 17 08/30/24 13:31 BP 112/66 08/30/24 13:31 Pulse Ox 96 08/30/24 13:31 FiO2 Intake & Output 08/29/24 08/30/24 08/30/24 18:59 06:59 18:59 Weight 67.585 kg - Constitutional General appearance: Present: cooperative - EENT Eyes: Present: EOMI ENT: Present: hearing grossly normal - Neck Neck: Present: normal ROM - Respiratory Respiratory: bilateral: CTA - Cardiovascular Rhythm: regular Heart sounds: normal: S1, S2 - Integumentary Integumentary: Present: normal turgor - Musculoskeletal Musculoskeletal: Present: gait normal - Psychiatric Psychiatric: Present: A&O x's 3, appropriate affect, intact judgment & insight - Additional findings Additional findings: Breast Exam: BRA: 36B Inspection: Bilateral grade 2 ptosis Palpation: Right breast: Multi positional exam fibrocystic changes no dominant masses or nodules of concern Right axilla: No adenopathy of concern Left breast: post surgical and post radiation changes mild fullness in the mid lower breast related to treatment, no dominant masses or nodules of concern Left axilla: No adenopathy of concern Assessment and Plan Assessment: Impression: Stage I invasive ductal carcinoma left breast Patient status post left breast lumpectomy and radiation therapy Patient presently on letrozole Ultrasound of the left breast on 07 09 24 questionable area of concern 7 x 3 mm hypoechoic nodule which was reviewed and discussed with radiology felt to be nonworrisome and can be followed conservatively Would recommend bilateral mammogram Plan: Bilateral mammogram, follow-up after these Follow medical oncology Follow radiation oncology Additional CC's: Hannah Fabian
== END ==
LOC: WWCWWP 12:18
PROVIDERS: ATTEND Surgery
DX: D05.12 Intraductal carcinoma in situ of left breast (principal); Z79.811 Long term (current) use of aromatase inhibitors; Z87.891 Personal history of nicotine dependence